=== PATIENT | female | born 1985 | race Asian ===

== ENCOUNTER 2024-11-26 10:58 | Emergency (ER) | payer BC, SELFPAY ==
[2024-11-26 10:59] VITALS: BMI 27.4
[2024-11-26 11:10] VITALS: BP 134/89; PULSE 83; RESP 18; TEMP 36.8; O2SAT 97
--- NOTE | 2024-11-26 11:20 | EDNOTE_ITS ---
Upper Respiratory Inf. RME/HPI General Chief Complaint: Flu Like Symptoms Stated Complaint: COUGH & CONGESTION, SOB Time Seen by Provider: 11/26/24 10:59 Arrival date/time: 11/26/24 10:58 Limitations: no limitations RME / HPI RME / HPI Narrative: 4-year-old female who has a history of diabetes hyperlipidemia is here today with 5-day history of runny nose, congestion, and cough. She has no history of asthma. She states she just returned from [facility]. She states her sugar has been difficult to control and her last hemoglobin C was 7.3, that was about 1 month ago. She denies any lower leg edema. Has no fevers or chills. Has no abdominal pain, nausea, vomiting. No syncope. She has no other acute complaints. . Related Data Home Medications ?Medication ?Instructions ?Recorded ?Confirmed metformin 500 mg tablet 500 mg PO BID 01/18/2005/06 glipizide 10 mg tablet 10 mg PO QDAY 05/06/2105/06 Previous Rx's ?Medication ?Instructions ?Recorded ibuprofen 600 mg tablet 600 mg PO Q6H #30 tabs 11/10 Allergies Allergy/AdvReac Type Severity Reaction Status Date / Time No Known Allergies Allergy Verified 11/26/24 11:01 Review of Systems Review of Systems Systems Reviewed: All systems reviewed, normal except as documented ED Exam General Limitations: Present no limitations General appearance: Present alert and in no apparent distress Head Head exam: Present atraumatic Eye Eye exam: Present normal appearance, PERRL and EOMI ENT ENT exam: Present normal exam, normal oropharynx and mucous membranes moist Neck Neck exam: Present normal inspection, full ROM and trachea midline Chest Chest inspection: Present normal inspection and symmetric chest wall rise Respiratory Respiratory exam: Present normal lung sounds bilaterally Cardiovascular Cardiovascular exam: Present regular rate, normal rhythm and normal heart sounds Abdominal Exam Abdominal exam: Present soft and normal bowel sounds Extremities Exam Extremities exam: Present normal inspection and full ROM Back Exam Back exam: Present normal inspection and full ROM Neurological Exam Neurological exam: Present alert and oriented X3 Psychiatric Psychiatric exam: Present normal affect and normal mood Skin Skin exam: Present warm, dry, intact and normal color Course Quality Measures none Orders Category Date Time Status Bedside COVID-19 Antigen Test NOW Care 11/26/24 12:29 Active Bedside Influenza A&B Antigen Test NOW Care 11/26/24 12:29 Completed Blood glucose [Bedside Blood Glucose] NOW Care 11/26/24 11:21 Active XR chest 2V Stat Exams 11/26/24 11:21 Completed D-Dimer Stat Lab 11/26/24 11:53 Completed Vital Signs Vital signs: Vital Signs Temperature 98.2 F 11/26/24 11:10 Pulse Rate 83 11/26/24 11:10 Respiratory Rate 18 11/26/24 11:10 Blood Pressure 134/89 H 11/26/24 11:10 Pulse Oximetry (%) 97 11/26/24 11:10 Oxygen Delivery Method Room Air 11/26/24 11:10 Upper Respiratory Infection MDM Narrative MDM Narrative:: 4-year-old female who has a history of diabetes hyperlipidemia is here today with 5-day history of runny nose, congestion, and cough. She has no history of asthma. She states she just returned from [facility]. She states her sugar has been difficult to control and her last hemoglobin C was 7.3, that was about 1 month ago. She denies any lower leg edema. Has no fevers or chills. Has no ab dominal pain, nausea, vomiting. No syncope. She has no other acute complaints. On exam, patient is nontoxic-appearing and in no visible signs distress. She has no respiratory distress. No paroxysmal cough or wheezing was noted. Workup here included screening influenza, COVID, D-dimer, and bedside glucose. Her bedside glucose was elevated, remaining tests were unremarkable. We discussed likely self-limiting viral etiology. Patient was advised to follow-up with her primary doctor. Treat her symptoms at home with Tylenol, ibuprofen, and rest. Return as needed for any worsening emergent changes. Patient data External records reviewed:: None Clinical information provided by:: patient Social determinants that could affect healthcare access:: none Patient has the following chronic illnesses:: Diabetes How is presenting disease/condition affected by chronic disease/condition?: uneffected by Evaluation data The following diagnostics were reviewed and interpreted by me:: lab results Lab and/or radiology exams considered but not ordered:: n/a Interpretation Summary: Hyperglycemia, otherwise unremarkable Medications / Prescriptions Medications or Prescriptions considered but not ordered:: n/a Medication administrations:: n/a Consultations Consultation(s) initiated? (list below): No Diagnosis Upper Respiratory Differential Diagnosis: upper respiratory infection Most likely diagnosis given after review of the tests above:: Viral URI Admission Indicated Admission indicated?: not indicated Admission Request Was there a request for admission?: No Disposition Plan Disposition Plan: Discharge Discharge Attestation Discharge Attestation: The patient and all family members were given an opportunity to ask questions and understood the discharge instructions. Discharge instructions specifically effects, indications for sooner follow up or return to the emergency department, and the expected course of current diagnosis. Patient condition: Stable Discharge Plan Plan Patient Disposition: HOME (Self Care) Patient condition on transfer: Stable Prescriptions/Referrals Prescriptions/Med Rec: No Action metformin 500 mg Tablet 500 mg PO BID glipizide 10 mg tablet 10 mg PO QDAY ibuprofen 600 mg tablet 600 mg PO Q6H Qty: 30 0RF Referrals: Shazia Ge PA-C [Primary Care Provider] - In 1 week Problem List Clinical Impression: Upper respiratory infection, viral Patient/Caregiver Discharge Instructions Education Materials: ED URI, Viral, No Abx (Adult) Additional Instructions: - Maintain rest and oral hydration. Follow-up with your primary doctor. You may use Tylenol and ibuprofen as needed for comfort. Return as needed for any worsening or emergent changes. Print Language: [facility] [place] [facility] Forms: [employer] Award Info., Patient Portal Info Letter
--- NOTE | 2024-11-26 11:21 | XR_ITS ---
Examination: PA chest single view Technique: Upright PA chest single view Date and time: November 26, 2024, 1142 hrs., Comparison May 06, 2021 Indications: Coughing and fever beginning 5 days ago. Findings: Normal heart size No prem lobar pneumonia No pulmonary edema. The osseous structures are intact Impression: No lobar pneumonia.
[2024-11-26 12:49] LABS: D-Dimer < 250 ng/mL (<600)
[2024-11-26 14:45] VITALS: BP 130/86; PULSE 86; RESP 17; TEMP 36.4; O2SAT 98
== END 2024-11-26 14:46 | disposition home or self-care (01) ==
PROVIDERS: Physician Assistant Medical; Emergency Provider Emergency Medicine; PCP Physician Assistant
DX: J06.9 Acute upper respiratory infection, unspecified (principal); B97.89 Other viral agents as the cause of diseases classified elsewhere; E11.65 Type 2 diabetes mellitus with hyperglycemia; E78.5 Hyperlipidemia, unspecified; Z79.84 Long term (current) use of oral hypoglycemic drugs
CPT/HCPCS: 36415; 71046; 85379; 87400; 87811; 99283